=== PATIENT | female | born 1980 | race African-American/Black ===

== ENCOUNTER 2019-12-19 06:12 | Inpatient (IN) | payer MEDICAID ==
[~2019-12-19] VITALS: Ht 160 cm; Wt 51.6 kg
[~2019-12-19 06:12] MED LIST: FOLI1 PO; HYDREA
[2019-12-19] MEDS ORDERED: OXYC-43 PO (06:14)
[2019-12-19] MEDS ORDERED: SODIUM CHLORIDE 0.9% 1,000 ML IV ONE ×2 (06:30→07:00)
[2019-12-19] MEDS ORDERED: ONDANSETRON HCL 4 MG/2 ML VIAL IVP ONE (06:30)
[2019-12-19] MEDS ORDERED: HYDROmorphone 2 MG/ML SYRINGE IVP ONE ×2 (06:30→07:00)
[2019-12-19 06:50] LABS: HEMATOCRIT 24.7 % (36-46); HEMOGLOBIN 8.6 g/dL (12.0-16.0); MEAN CORPUSCULAR HEMOGLOBIN 34.1 pg (26.0-34.0); MEAN CORPUSCULAR HGB CONC 34.7 G/dL (31.0-37.0); MEAN CORPUSCULAR VOLUME 98 fL (80-100); PLATELET COUNT (AUTO) 571 K/uL (150-450); RED BLOOD CELL COUNT(AUTO) 2.51 MIL/uL (4.00-5.20); RETICULOCYTE % (AUTO) 5.4 % (0.5-2.3)
[2019-12-19 06:58] LABS: ANION GAP 8 mmol/L (8-16); CALCIUM, TOTAL 8.4 mg/dL (8.8-10.5); CARBON DIOXIDE 25 mmol/L (22-29); CHLORIDE 105 mmol/L (98-107); CREATININE 0.65 mg/dL (0.60-1.30); GLOMERULAR FILTR. RATE CALC > 60 mL/min (>60); GLUCOSE,RANDOM 90 mg/dL (70-110); POTASSIUM 3.5 mmol/L (3.5-5.1); SODIUM SERUM 138 mmol/L (136-145); UREA NITROGEN, BLOOD 4 mg/dL (7-18)
[2019-12-19 07:02] LABS: INR 1.1 (0.9-1.1); PROTHROMBIN TIME 11.4 SEC (9.4-11.6)
[2019-12-19 07:17] LABS: B-TYPE NATRIURETIC PEPTIDE 77 pg/mL (0-100)
[2019-12-19 07:25] LABS: ALANINE AMINOTRANSFERASE 47 U/L (12-78); ALBUMIN 2.9 g/dL (3.4-5.0); ALKALINE PHOSPHATASE 113 U/L (46-116); ASPARTATE AMINOTRANSFERASE 43 U/L (15-37); BAND NEUTROPHILS % (MANUAL) 4 % (0-5); BILIRUBIN,TOTAL 1.2 mg/dL (0.1-1.0); CREATINE KINASE, TOTAL ONLY 36 U/L (26-192); EOSINOPHILS % (MANUAL) 1 % (1-6); HCG,QUANTITATIVE < 1 mIU/mL (0-6); LIPASE 210 U/L (73-393); LYMPHOCYTES % (MANUAL) 40 % (22-44); MONOCYTES % (MANUAL) 3 % (2-9); SEGMENTED NEUTROPHILS % 52 % (40-70); TOTAL PROTEIN, SERUM 9.3 g/dL (6.4-8.2)
[2019-12-19 08:00] LABS: APPEARANCE,URINE CLOUDY (CLEAR); BILIRUBIN,URINE NEGATIVE (NEGATIVE); GLUCOSE, URINE (UA) NEGATIVE (NEGATIVE); KETONES,URINE NEGATIVE (NEGATIVE); NITRATE,URINE POSITIVE (NEGATIVE); OCCULT BLOOD,URINE NEGATIVE (NEGATIVE); PH,URINE 7.5 (5.0-8.0); PROTEIN,URINE TRACE (NEGATIVE)
[2019-12-19] MEDS ORDERED: ONDANSETRON HCL 4 MG/2 ML VIAL IVP PRN ×2 (08:00→10:15)
[2019-12-19] MEDS ORDERED: ACETAMINOPHEN 325 MG TABLET PO PRN (08:00)
[2019-12-19] MEDS ORDERED: SODIUM CHLORIDE 0.45% 1,000 ML IV ONE (08:00)
[2019-12-19] MEDS ORDERED: 0.9% SODIUM CHLORIDE 10 ML SYRINGE IVP PRN (08:00)
[2019-12-19 08:05] LABS: BACTERIA,URINE Many /HPF (None Seen); LEUKOCYTE ESTERASE ,URINE SMALL (NEGATIVE); RBC,URINE 0-2 /HPF (0-2)
[2019-12-19 08:06] LABS: SQUAMOUS EPITHELIAL CELL,UR Moderate /LPF (None Seen)
[2019-12-19] MEDS ORDERED: MORPHINE SULFATE 4 MG/ML SYRINGE IVP ONE (08:30)
[2019-12-19] MEDS ORDERED: CefTRIAXone 1 GM/DEXTROSE 50 ML IV ONE (08:30)
[2019-12-19 09:47] VITALS: BP 112/74
[2019-12-19] MEDS ORDERED: HYDROmorphone 2 MG/ML SYRINGE IVP PRN (10:00)
[2019-12-19] MEDS ORDERED: IPRATROPIUM BROMIDE 0.5 MG/2.5 ML NEB SOLUTION NEB PRN (10:15)
[2019-12-19] MEDS ORDERED: DOCUSATE SODIUM 100 MG CAPSULE PO PRN (10:15)
[2019-12-19] MEDS ORDERED: MAGNESIUM HYDROXIDE SUSPENSION 30 ML UDCUP PO PRN (10:15)
[2019-12-19] MEDS ORDERED: BISACODYL 10 MG RECTAL RECTAL SUPPOSITORY PR PRN (10:15)
[2019-12-19] MEDS ORDERED: ALBUTEROL SULFATE 2.5 MG/0.5 ML NEB SOLUTION NEB PRN (10:15)
[2019-12-19] MEDS: PANTOPRAZOLE SODIUM 40 MG DR TABLET PO SCH (10:45)
[2019-12-19] MEDS: SODIUM CHLORIDE 0.45% 1,000 ML IV SCH (10:45)
[2019-12-19 11:59] VITALS: BP 115/72
[2019-12-19] MEDS: HYDROmorphone 2 MG/ML SYRINGE IVP PRN ×3 (13:42→21:51)
[2019-12-19] MEDS: DiphenhydrAMINE HCL 50 MG/ML VIAL IVP PRN (17:17)
[2019-12-19] MEDS ORDERED: PNEUMOCOCCAL VACCINE POLYVALENT 0.5 ML VIAL [PPSV23] IM ONE (19:00)
[2019-12-19 19:33] VITALS: BP 125/62
[2019-12-20 00:18] VITALS: BP 135/80
[2019-12-20] MEDS: DiphenhydrAMINE HCL 50 MG/ML VIAL IVP PRN ×2 (00:55→10:56)
[2019-12-20] MEDS: SODIUM CHLORIDE 0.45% 1,000 ML IV SCH ×3 (00:55→18:07)
[2019-12-20] MEDS ORDERED: HYDROmorphone 2 MG/ML SYRINGE IVP ONE (01:00)
[2019-12-20] MEDS: HYDROmorphone 2 MG/ML SYRINGE IVP PRN ×5 (02:28→19:44)
[2019-12-20 04:39] VITALS: BP 122/73
[2019-12-20 07:28] LABS: BASOPHILS % (AUTO) 0.3 % (0.0-2.0); EOSINOPHILS % (AUTO) 0.2 % (1.0-6.0); HEMATOCRIT 23.3 % (36-46); HEMOGLOBIN 8.3 g/dL (12.0-16.0); LYMPHOCYTES # (AUTO) 3.1 K/uL (1.0-4.8); LYMPHOCYTES % (AUTO) 19.8 % (22.0-44.0); MEAN CORPUSCULAR HEMOGLOBIN 35.4 pg (26.0-34.0); MEAN CORPUSCULAR HGB CONC 35.5 G/dL (31.0-37.0); MEAN CORPUSCULAR VOLUME 100 fL (80-100); MONOCYTES # (AUTO) 1.6 K/uL (0.1-1.0); MONOCYTES % (AUTO) 10.2 % (2.0-9.0); NEUTROPHILS # (AUTO) 10.8 K/uL (1.8-7.7); NEUTROPHILS % (AUTO) 69.5 % (40.0-70.0); RED BLOOD CELL COUNT(AUTO) 2.34 MIL/uL (4.00-5.20); RED CELL DISTRIBUTION WIDTH 17.2 % (11.5-14.5); RETICULOCYTE % (AUTO) 5.1 % (0.5-2.3)
[2019-12-20 07:32] LABS: PLATELET COUNT (AUTO) 482 K/uL (150-450)
[2019-12-20 07:45] LABS: ALANINE AMINOTRANSFERASE 38 U/L (12-78); ALBUMIN 2.6 g/dL (3.4-5.0); ALKALINE PHOSPHATASE 98 U/L (46-116); ANION GAP 10 mmol/L (8-16); ASPARTATE AMINOTRANSFERASE 39 U/L (15-37); BILIRUBIN,TOTAL 1.5 mg/dL (0.1-1.0); CALCIUM, TOTAL 8.2 mg/dL (8.8-10.5); CARBON DIOXIDE 23 mmol/L (22-29); CHLORIDE 103 mmol/L (98-107); CREATININE 0.57 mg/dL (0.60-1.30); GLOMERULAR FILTR. RATE CALC > 60 mL/min (>60); GLUCOSE,RANDOM 76 mg/dL (70-110); LACTATE DEHYDROGENASE 407 U/L (81-234); POTASSIUM 3.8 mmol/L (3.5-5.1); SODIUM SERUM 136 mmol/L (136-145); TOTAL PROTEIN, SERUM 8.7 g/dL (6.4-8.2); UREA NITROGEN, BLOOD 5 mg/dL (7-18)
[2019-12-20 08:02] VITALS: BP 124/77
[2019-12-20] MEDS: CefTRIAXone 1 GM/DEXTROSE 50 ML IV SCH (09:31)
[2019-12-20] MEDS: PANTOPRAZOLE SODIUM 40 MG DR TABLET PO SCH (10:01)
[2019-12-20 13:00] VITALS: BP 128/75
[2019-12-20 15:33] VITALS: BP 115/54
[2019-12-20] MEDS: OxyCODONE HCL/ACETAMINOPHEN 5-325 MG TABLET PO PRN (18:11)
[2019-12-20 19:35] VITALS: BP 136/83
[2019-12-21] VITALS: BP 118/64
[2019-12-21] MEDS: HYDROmorphone 2 MG/ML SYRINGE IVP PRN ×9 (00:21→23:43)
[2019-12-21] MEDS: SODIUM CHLORIDE 0.45% 1,000 ML IV SCH ×3 (02:05→20:39)
[2019-12-21] MEDS: DiphenhydrAMINE HCL 50 MG/ML VIAL IVP PRN (02:06)
[2019-12-21 04:26] VITALS: BP 118/69
[2019-12-21 06:54] LABS: BASOPHILS % (AUTO) 0.5 % (0.0-2.0); EOSINOPHILS % (AUTO) 0.2 % (1.0-6.0); HEMATOCRIT 22.7 % (36-46); LYMPHOCYTES # (AUTO) 2.9 K/uL (1.0-4.8); MEAN CORPUSCULAR HGB CONC 35.1 G/dL (31.0-37.0); MEAN CORPUSCULAR VOLUME 100 fL (80-100); MONOCYTES # (AUTO) 1.8 K/uL (0.1-1.0); MONOCYTES % (AUTO) 11.6 % (2.0-9.0); NEUTROPHILS # (AUTO) 11.1 K/uL (1.8-7.7); NEUTROPHILS % (AUTO) 69.7 % (40.0-70.0); PLATELET COUNT (AUTO) 372 K/uL (150-450); RED BLOOD CELL COUNT(AUTO) 2.28 MIL/uL (4.00-5.20); RED CELL DISTRIBUTION WIDTH 16.8 % (11.5-14.5)
[2019-12-21 07:41] VITALS: BP 122/70
[2019-12-21] MEDS: PANTOPRAZOLE SODIUM 40 MG DR TABLET PO SCH (08:25)
[2019-12-21] MEDS: CefTRIAXone 1 GM/DEXTROSE 50 ML IV SCH (08:25)
[2019-12-21 08:28] LABS: RETICULOCYTE % (AUTO) 7.6 % (0.5-2.3)
[2019-12-21] MEDS ORDERED: *CLINICAL-LEVOFLOXACIN IVPB DOSING CLINICAL ONE (10:30)
[2019-12-21] MEDS: OxyCODONE HCL/ACETAMINOPHEN 5-325 MG TABLET PO PRN ×2 (11:23→17:34)
[2019-12-21] MEDS: HYDROXYUREA 500 MG CAPSULE PO SCH (11:24)
[2019-12-21 11:45] VITALS: BP 135/68
[2019-12-21] MEDS: LEVOFLOXACIN 250 MG/D5% WATER 50 ML IV SCH (12:13)
[2019-12-21] MEDS ORDERED: HYDROmorphone 2 MG/ML SYRINGE IVP ONE (12:44)
[2019-12-21 15:35] VITALS: BP 121/68
[2019-12-21 20:00] VITALS: BP 113/62
[2019-12-22 00:05] VITALS: BP 112/61
[2019-12-22] MEDS: HYDROmorphone 2 MG/ML SYRINGE IVP PRN ×10 (01:59→21:40)
[2019-12-22] MEDS: OxyCODONE HCL/ACETAMINOPHEN 5-325 MG TABLET PO PRN ×2 (03:23→10:29)
[2019-12-22 04:43] VITALS: BP 129/73
[2019-12-22] MEDS: SODIUM CHLORIDE 0.45% 1,000 ML IV SCH ×2 (05:09→14:29)
[2019-12-22 06:52] LABS: BASOPHILS % (AUTO) 0.6 % (0.0-2.0); EOSINOPHILS % (AUTO) 0.4 % (1.0-6.0); LYMPHOCYTES # (AUTO) 2.4 K/uL (1.0-4.8); LYMPHOCYTES % (AUTO) 13.5 % (22.0-44.0); MEAN CORPUSCULAR HEMOGLOBIN 34.9 pg (26.0-34.0); MEAN CORPUSCULAR HGB CONC 35.9 G/dL (31.0-37.0); MEAN CORPUSCULAR VOLUME 97 fL (80-100); NEUTROPHILS # (AUTO) 13.4 K/uL (1.8-7.7); NEUTROPHILS % (AUTO) 74.5 % (40.0-70.0); PLATELET COUNT (AUTO) 365 K/uL (150-450); RED BLOOD CELL COUNT(AUTO) 1.95 MIL/uL (4.00-5.20); RED CELL DISTRIBUTION WIDTH 18.4 % (11.5-14.5)
[2019-12-22 07:05] LABS: HEMOGLOBIN 6.8 g/dL (12.0-16.0)
[2019-12-22 07:06] LABS: HEMATOCRIT 18.9 % (36-46)
[2019-12-22 07:20] VITALS: BP 123/72
[2019-12-22] MEDS: HYDROXYUREA 500 MG CAPSULE PO SCH (08:15)
[2019-12-22] MEDS: PANTOPRAZOLE SODIUM 40 MG DR TABLET PO SCH (08:15)
[2019-12-22] MEDS: LEVOFLOXACIN 250 MG/D5% WATER 50 ML IV SCH (10:30)
[2019-12-22 12:00] VITALS: BP 121/72
[2019-12-22 16:33] VITALS: BP 127/75
[2019-12-22 19:17] VITALS: BP 110/69
[2019-12-23] VITALS (13 sets, daily range): BP systolic 110–129; BP diastolic 65–80
[2019-12-23] MEDS: OxyCODONE HCL/ACETAMINOPHEN 5-325 MG TABLET PO PRN ×3 (00:18→17:37)
[2019-12-23] MEDS: HYDROmorphone 2 MG/ML SYRINGE IVP PRN ×8 (00:25→23:55)
[2019-12-23] MEDS: SODIUM CHLORIDE 0.45% 1,000 ML IV SCH (04:14)
[2019-12-23 07:56] LABS: MEAN CORPUSCULAR HEMOGLOBIN 34.4 pg (26.0-34.0); MEAN CORPUSCULAR VOLUME 98 fL (80-100); PLATELET COUNT (AUTO) 407 K/uL (150-450); RED BLOOD CELL COUNT(AUTO) 1.94 MIL/uL (4.00-5.20); RED CELL DISTRIBUTION WIDTH 18.6 % (11.5-14.5)
[2019-12-23 08:06] LABS: HEMOGLOBIN 6.7 g/dL (12.0-16.0)
[2019-12-23 08:07] LABS: HEMATOCRIT 19.1 % (36-46)
[2019-12-23] MEDS: HYDROXYUREA 500 MG CAPSULE PO SCH (08:17)
[2019-12-23] MEDS: PANTOPRAZOLE SODIUM 40 MG DR TABLET PO SCH (08:17)
[2019-12-23 09:14] LABS: MAGNESIUM 1.6 mg/dL (1.80-2.40); PHOSPHORUS 2.7 mg/dL (2.5-4.9)
[2019-12-23 09:31] LABS: BAND NEUTROPHILS % (MANUAL) 1 % (0-5); CORRECTED WHITE BLOOD COUNT 15.4 K/uL (4.5-11.0); LYMPHOCYTES % (MANUAL) 13 % (22-44); MONOCYTES % (MANUAL) 6 % (2-9); MYELOCYTES % 1 % (0-0); SEGMENTED NEUTROPHILS % 79 % (40-70)
[2019-12-23] MEDS: LEVOFLOXACIN 250 MG/D5% WATER 50 ML IV SCH (11:11)
[2019-12-23] MEDS ORDERED: MAGNESIUM SULFATE 2 GM/WATER 50 ML IV PRN (13:45)
[2019-12-23] MEDS ORDERED: MAGNESIUM SULFATE 4 GM/WATER 100 ML IV PRN (13:45)
[2019-12-23 14:00] LABS: ALBUMIN 2.3 g/dL (3.4-5.0)
[2019-12-23] MEDS ORDERED: SODIUM CHLORIDE 0.9% 250 ML IV ONE (14:54)
[2019-12-23] MEDS: MAGNESIUM OXIDE 400 MG TABLET PO PRN ×3 (16:09→23:56)
[2019-12-23] MEDS: DiphenhydrAMINE HCL 50 MG/ML VIAL IVP PRN (17:46)
[2019-12-23] MEDS: ACETAMINOPHEN 325 MG TABLET PO PRN (17:52)
[2019-12-24 00:15] VITALS: BP 114/55
[2019-12-24] MEDS: HYDROmorphone 2 MG/ML SYRINGE IVP PRN ×3 (02:21→08:00)
[2019-12-24 05:15] VITALS: BP 126/65
[2019-12-24 05:29] VITALS: BP 126/69
[2019-12-24] MEDS: ACETAMINOPHEN 325 MG TABLET PO PRN (05:32)
[2019-12-24 06:59] LABS: HEMATOCRIT 24.4 % (36-46); HEMOGLOBIN 8.5 g/dL (12.0-16.0); MEAN CORPUSCULAR HEMOGLOBIN 33.6 pg (26.0-34.0); MEAN CORPUSCULAR HGB CONC 34.8 G/dL (31.0-37.0); MEAN CORPUSCULAR VOLUME 97 fL (80-100); PLATELET COUNT (AUTO) 483 K/uL (150-450); RED BLOOD CELL COUNT(AUTO) 2.52 MIL/uL (4.00-5.20); RED CELL DISTRIBUTION WIDTH 17.7 % (11.5-14.5)
[2019-12-24 07:02] LABS: BAND NEUTROPHILS % (MANUAL) 0 % (0-5)
[2019-12-24 07:44] LABS: BASOPHILS % (MANUAL) 1 % (0-2); CORRECTED WHITE BLOOD COUNT 9.3 K/uL (4.5-11.0); EOSINOPHILS % (MANUAL) 1 % (1-6); LYMPHOCYTES % (MANUAL) 7 % (22-44); MONOCYTES % (MANUAL) 9 % (2-9); REACTIVE LYMPHOCYTES 4 % (0-0); SEGMENTED NEUTROPHILS % 78 % (40-70)
[2019-12-24 07:51] VITALS: BP 131/74
[2019-12-24] MEDS: PANTOPRAZOLE SODIUM 40 MG DR TABLET PO SCH (08:00)
[2019-12-24] MEDS: HYDROXYUREA 500 MG CAPSULE PO SCH (08:01)
[2019-12-24] MEDS ORDERED: OXYC-601 PO (08:08)
[2019-12-24] MEDS ORDERED: LEVO-72 PO (08:08)
[2019-12-24] MEDS ORDERED: HYDR500 PO (08:08)
[2019-12-24] MEDS ORDERED: MULTIVITAMINS WITH MINERALS, THERAPEUTIC TABLET PO SCH (09:00)
[2019-12-24] MEDS: OxyCODONE HCL/ACETAMINOPHEN 5-325 MG TABLET PO PRN (11:08)
== END 2019-12-24 11:55 | disposition home or self-care (01) | DRG 662 ==
LOC: EMS 06:12 → 5N 08:17
PROVIDERS: ADMIT Internal Medicine; ATTEND Internal Medicine
PROC: 30233N1 Transfusion of Nonautologous Red Blood Cells into Peripheral Vein, Percutaneous Approach (ICD-10-PCS; principal; 2019-12-23)
DX: D57.00 Hb-SS disease with crisis, unspecified (principal); E43 Unspecified severe protein-calorie malnutrition; R65.10 Systemic inflammatory response syndrome (SIRS) of non-infectious origin without acute organ dysfunction; N39.0 Urinary tract infection, site not specified; E86.0 Dehydration; B96.89 Other specified bacterial agents as the cause of diseases classified elsewhere; D57.1 Sickle-cell disease without crisis; Z79.899 Other long term (current) drug therapy; Z68.20 Body mass index [BMI] 20.0-20.9, adult
CPT/HCPCS: 82247; 82248; 83010; 83615; 83735; 84100; 84145; 85045; 86850; 86900; 86901; 86920; 87040; 87081; 87086; 93005; J0696; J1170; J1200; J1956; J2270; J2405; J7030; J7050; P9016